=== PATIENT | male | born 1965 | race Caucasian/White ===

== ENCOUNTER 2018-03-19 08:20 | Day surgery (SDC) | payer BC ==
[2018-03-19] MEDS ORDERED: LACTATED RINGERS 1,000 ML IV ONE (08:40)
[2018-03-19] MEDS ORDERED: fentaNYL 250 MCG/5 ML VIAL IVP ONE (09:57)
[2018-03-19] MEDS ORDERED: MIDAZOLAM 2 MG/2 ML VIAL IVP ONE (09:57)
[2018-03-19 11:12] VITALS: BP 110/70
== END 2018-03-19 08:21 | disposition home or self-care (01) ==
LOC: SDS 08:20
PROVIDERS: ATTEND Surgery
PROC: 0DJD8ZZ Inspection of Lower Intestinal Tract, Via Natural or Artificial Opening Endoscopic (ICD-10-PCS; principal; 2018-03-19 09:45)
DX: Z12.11 Encounter for screening for malignant neoplasm of colon (principal); K57.30 Diverticulosis of large intestine without perforation or abscess without bleeding
CPT/HCPCS: 45378; J3010; J7120